=== PATIENT | male | born 1965 | race Caucasian/White ===

== ENCOUNTER 2016-12-05 13:59 | Inpatient (IN) | payer MEDICAID ==
[~2016-12-05] VITALS: Ht 180.3 cm; Wt 109.0 kg
--- NOTE | ~2016-12-05 | ECHO ---
Transthoracic Echocardiography Report (TTE) Demographics Patient Name PAULINE STRANGE Date of Study 12/06/2016 Patient Number [id number] Visit Number [id number] Date of 1965 Room Number G3306 Accession Number [id number] Gender Male Age 51 year(s) Referring [facility] Monica Chase [employer] Kassandra Bojorquez [facility] Physician Physician Interpreting Anabel Saini Director Of Premium Seat Sales Physician Supervising Ordering Physician MD/MARYAN Nurse Stress Slot Host Conclusions Summary Technically difficult exam with suboptimal images. The estimated left ventricular ejection fraction is 55%. Diastolic assessment reveals Grade I diastolic dysfunction. Mitral valve appears within normal limits. Other Valves were poorly visualized Procedure Type of Study TTE procedure:2D Echocardiogram. Procedure Date Date: 12/06/2016 Start: 12:01 PM Indications:Tachycardia. Appropriate Use Criteria: 9 Patient Status: LEILA HR: 91 bpm BP: 150/78 mmHg M-Mode/2D Measurements LV Diastolic Dimension: 4.47 cm LV Systolic Dimension: 3.57 cm LV Septum Diastolic: 1 cm LV PW Diastolic: 1 cm AO Root Dimension: 1.8 cm Cardiac Output: 6.09 l/min AV Cusp Separation: 1.9 cm RV Diastolic Dimension: 2.6 cm LVOT: 2 cm LVOT VTI: 21.3 cm LV Stroke volume: 66.88 ml Doppler Measurements AV Peak Velocity: 1.22 m/s MV Peak E-Wave: 0.8 m/s AV Peak Gradient: 5.95 mmHg MV Peak A-Wave: 0.74 m/s AV Mean Gradient: 3 mmHg MV E/A Ratio: 1.07 LVOT Peak Velocity: 1 m/s MV P1/2t: 42 msec TR Gradient:17.64 mmHg PV Peak Velocity: 1.6 m/s Estimated RAP:10 mmHg PV Peak Gradient: 10.24 mmHg Estimated RVSP: 28 mmHg Estimated PASP: 27.64 mmHg E' Septal Velocity: 0.1 m/s A' Septal Velocity: 0.17 m/s Findings Left Ventricle Diastolic assessment reveals Grade I diastolic dysfunction. Right Ventricle Normal right ventricle structure and function. Left Atrium Normal left atrial size. Right Atrium Normal right atrial size. Mitral Valve Normal mitral valve structure and function. Aortic Valve Not well visualized Tricuspid Valve Not well visualized Pulmonic Valve Pulmonic valve is not well seen. Pericardial Effusion No evidence of pericardial effusion. Pleural Effusion No evidence of pleural effusion. Signature dtt: JENNY LOTT dtd: 12/06/16 1201 Physician Self Edit
--- NOTE | ~2016-12-05 | CON ---
PATIENT'S NAME: PAULINE STRANGE [facility] AGE: 51 Y [address] ROOM: G3306 [place], [place] [address] LOCATION: G3N ADMIT DATE: 12/05/2016 Consultation DISCHARGE DATE: FAMILY PHYSICIAN: PHYSICIAN, NO ATTENDING PHYSICIAN: Nura Gaming DATE OF CONSULTATION: 12/05/2016 REFERRING PHYSICIAN: Nura Gaming MD This is a consultation for Dr. Nura Gaming. REASON FOR CONSULTATION: For preoperative clearance and medical management. CHIEF COMPLAINT: Left hip pain. HISTORY OF PRESENT ILLNESS: This is a 51-year-old male who presented to the emergency room after a fall at home. He has a history of cerebral palsy, but does live independently and does mobilize well at home. He was up using his walker and had ambulated to the kitchen, where he got his walker caught up and suffered a mechanical ground level fall. He did not hit his head. He did not get lightheaded or dizzy. He had no syncope-like symptoms. He landed on his left hip and left knee. He does complain now of left hip pain and some dull left knee pain. No sensory changes. He rates the pain at 6/10. He states that the morphine, I gave him in the emergency room, has helped. The patient does have a known history of cerebral palsy, but does not have a primary care physician. He states he last saw a physician years ago when he was obtaining disability. He does live independently, mobilizes well. He does state he has had some weight gain in the recent months, but he feels that is due to lack of activity. He has been trying to lose some weight, but has been unsuccessful. He denies any lightheadedness or dizziness. He denies any headaches. He denies any chest pain, palpitations, lower extremity edema, or dyspnea on exertion. He denies any PND. He denies any shortness of breath or cough. He denies any nausea, vomiting, diarrhea, constipation, or melena. He denies any urinary symptoms or problems. He does complain of left hip pain and left knee pain as described above. He denies any sensory changes. His gait is relatively stable with a wheeled walker at home. REVIEW OF SYSTEMS: A 10-point review of systems was completed and was negative other than mentioned above in the HPI. PATIENT'S NAME: PAULINE STRANGE [facility] AGE: 51 Y [address] ROOM: G3306 [place], [place] [address] LOCATION: [facility] ADMIT DATE: 12/05/2016 Consultation DISCHARGE DATE: FAMILY PHYSICIAN: PHYSICIAN, NO ATTENDING PHYSICIAN: Nura Gaming ALLERGIES: NO KNOWN MEDICAL ALLERGIES. MEDICATIONS: No chronic medications. PAST MEDICAL HISTORY: Cerebral palsy. PAST SURGICAL HISTORY: 1. He has had a limb lengthening surgery of the left hip. 2. Left heel surgery. 3. Lower back surgery. FAMILY HISTORY: His mother had heart valve surgery, diabetes mellitus type 2, and multiple small strokes, and she is . His father of colon cancer. SOCIAL HISTORY: The patient is disabled, living at home by himself. He does not smoke. He does not do illicit drugs. He calls himself a social drinker, last alcoholic drink was about a month ago. PHYSICAL EXAMINATION: VITAL SIGNS: Temperature is 97.6 oral, blood pressure is 131/60, heart rate is 130, respiratory rate is 22, and oxygen saturations are 95% on room air. Weight is unavailable, BMI is unavailable. GENERAL: This is a 51-year-old male, who is a white , appears in mild acute distress. He is diaphoretic. He is guarding his left pelvis and hip area. HEENT: His head is normocephalic and atraumatic. His eyes, extraocular movements are intact. His oropharynx is dry. His gums are pink. Dentition is poor. NECK: Supple without any lymphadenopathy or thyromegaly. LUNGS: Clear throughout all chowdhury. There is no wheeze. Symmetric expansion noted. HEART: Regular rate and rhythm without any gallop or murmur. S1 and S2 are present. No JVD. No pedal edema. 2+ pulses bilaterally in all 4 extremities. ABDOMEN: Round and soft, nontender, nondistended. Bowel sounds are present. : Deferred. EXTREMITIES: Left lower extremity is propped up on a pillow, slightly bent. Mildly externally rotated. Symmetric in size when compared to the right lower extremity. He has point tenderness at his pelvis on the left side and mild tenderness to the left knee on palpation. Motor function is intact. PATIENT'S NAME: PAULINE STRANGE [facility] AGE: 51 Y [address] ROOM: G3306 [place], [place] [address] LOCATION: [facility] ADMIT DATE: 12/05/2016 Consultation DISCHARGE DATE: FAMILY PHYSICIAN: PHYSICIAN, NO ATTENDING PHYSICIAN: Nura Gaming NEUROLOGIC: Cranial nerves 2 through 12 are intact. No sensory deficits noted. PSYCHIATRIC: Mood and affect appear normal. RADIOLOGIC: A chest x-ray is within normal limits and appears to be clear. A hip x-ray appears to have a left femur fracture. CT scan of the pelvis is pending. LABORATORY DATA: CBC shows white blood cell count of 15.4, hemoglobin of 16.2, hematocrit of 45.6, and platelet count of 372. Chemistry panel shows a glucose 158, BUN of 14, creatinine of 1.0, sodium 142, potassium of 3.9, chloride of 108, CO2 of 23, calcium of 8.7, albumin of 3.9, phosphorus 2.6, anion gap 14.9, and GFR of greater than 60. INR was 1.0. Prealbumin was 35. Urinalysis is yet to be received. ASSESSMENT AND PLAN: 1. Preoperative clearance for a left femoral neck fracture: He is in a sinus tachycardia with some diaphoresis. Recommendations were made for cardiac enzymes and TSH level. Pending further review, we will give ultimate clearance, but appears to be at average risk for average procedure. Risks, benefits, and alternatives to be discussed by orthopedic surgeon and Anesthesiology. 2. Left hip pain: We will give symptomatic management with IV morphine and observe the patient's response. 3. Sinus tachycardia: EKG was reviewed; did not show any acute changes; did show sinus tachycardia with a rate of 120, probably a stress response. We will observe his response to treatment of the pain. We will do routine vital signs and observation. We will check cardiac enzymes and TSH level. 4. Leukocytosis: This is probably reactive. He does not have any fevers. No known recent illnesses. Followup lab in the morning. 5. Cerebral palsy: He will need a restorative plan in the postoperative phase. 6. Obesity: Lifestyle modification education was given. The above line of management and plan done in collaboration with Dr. Akira Damon. The patient is at average risk for average procedure. Ultimate preoperative clearance pending results of laboratory findings. The above line of management was discussed with the patient and stated complete understanding of the plan. I would like to thank Dr. Nura Gaming for this consultation. PATIENT'S NAME: PAULINE STRANGE [facility] AGE: 51 Y [address] ROOM: [place] [address] LOCATION: [facility] ADMIT DATE: 12/05/2016 Consultation DISCHARGE DATE: FAMILY PHYSICIAN: PHYSICIANENRIKE ATTENDING PHYSICIAN: Nura Gaming P CHELE DOTSON APRN, APRN FOR MD RAJWINDER RICKS/lucia /[id number] d: t: 12/05/16 2300, CONSULTATION REPORT
--- NOTE | ~2016-12-05 | HP ---
PATIENT'S NAME: ALIE [facility] AGE: 51 Y [address] ROOM: [place] [address] LOCATION: [facility] ADMIT DATE: 12/05/2016 History & Physical DISCHARGE DATE: FAMILY PHYSICIAN: PHYSICIAN, NO ATTENDING PHYSICIAN: Megha Gaming DATE OF SERVICE: 12/05/2016 TIME: 5:00 p.m. HISTORY OF PRESENT ILLNESS: Mr. Vazquez is a 51-year-old healthy white male with cerebral palsy. He fell at home. He sustained a left hip displaced femoral neck fracture and also greater trochanter fracture. He lives independently but has been having increasing hip pain over the years and had reached a point that could no longer bear weight on the left hip. Intellectually, he has functioned at a very high level. He has worked as a computer numerical control programmer most recently, but currently, he is unemployed, would like to find a new employment, has no other medical conditions. ALLERGIES: NONE KNOWN. MEDICINES: None. PAST MEDICAL HISTORY: Cerebral palsy. He was born 3 months premature. He never received any treatment for his left hip. He has no pain in the right hip. He was walking independently prior to the left hip becoming increasingly painful. He does not smoke. Does not chew. Rarely drinks any alcohol. No drug abuse. REVIEW OF SYSTEMS: As above. FAMILY MEDICAL HISTORY: Unremarkable. PERSONAL AND SOCIAL HISTORY: He lives by himself. PHYSICAL EXAMINATION: GENERAL: A white male, mild distress. HEENT: Hears and sees. PATIENT'S NAME: ALIE [facility] AGE: 51 Y [address] ROOM: [address] [address] LOCATION: [facility] ADMIT DATE: 12/05/2016 History & Physical DISCHARGE DATE: FAMILY PHYSICIAN: PHYSICIAN, NO ATTENDING PHYSICIAN: Megha Gaming NECK: Nontender. HEART: Pulse rate is regular. LUNGS: Able to take in a deep breath. ABDOMEN: Soft. MUSCULOSKELETAL: Left hip, painful motion. Holding his hip and knee both flexed. Has good strength in his left leg. Feels sensation. Distal pulses palpable. IMAGING DATA: X-rays show a normal right hip without arthritic changes. The left hip, a typical cerebral palsy hip, which has been untreated, tight adductors, subluxed with severe degenerative changes. Now with displaced femoral neck fracture above the lesser trochanter and also fracture into the greater trochanter. ASSESSMENT AND PLAN: Discussed the treatment options. Certainly, if he was severely mentally involved and nonfunctional, resection of the proximal femur would be the best treatment. This would e guaranteed and never bear weight on it, likely develop significant heterotopic ossification and may even erode through the skin with spasticity. He is not interested in that option. 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 However, now with the additional instability of fracturing and with the osteopenia, it is difficult to achieve a fusion. With his high level of intellect, total hip replacement is an option. We discussed risks, benefits, and alternatives. He understands the high rate of dislocation, high rate of loosening, possibility of infection, would most likely require tenotomies, would also place in a hip spica cast initially to help keep the hip contained, but with a good result, this would be the best treatment. If the total hip failed, then resection would be the salvage procedure. He understands the risks, benefits, and alternatives, and would like to proceed with a total hip replacement. We will do with robotic guidance. MEGHA GAMING MD DPM/lucia /[id number] D: T: HISTORY & PHYSICAL
--- NOTE | ~2016-12-05 | DS ---
PATIENT'S NAME: PAULINE VAZQUEZ [facility] AGE: 51 Y [address] 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 He was admitted with a hip fracture, displaced femoral neck fracture, and also a fracture to the greater trochanter. He has a dysplastic hip typical of cerebral palsy with very marked tightness of the adductors. We discussed with him treatment options, certainly fusion would be an option, but would be difficult to achieve with a comminuted fracture and most likely some degree of osteoporosis. Could do a resection of the hip, but it is guaranteed that he would never walk on it. Discussed the option of a total hip. He has the insight of benefits from a total hip and his other hip is normal. He understands risks, benefits, and alternatives. Certainly if this hip would fail, the treatment would be the same with resection of the hip. He was medically optimized. Complex hip replacement was performed with the Higinio robot. An open adductor release was performed, also a psoas lengthening. The sciatic nerve was decompressed and the hip center was restored at an anatomic position. Procedure was done without complication. Postop leg length was equal. He was placed in a bilateral hip spica cast with the knees in only a few degrees of flexion. The days postop, the white blood count became elevated. He did not feel well. The hip spica cast was removed to inspect the wound. The wound was soft, no fluctuance, no erythema, no drainage of any type, no signs of any infection. The adductor wound was also completely intact. CT scan of the chest demonstrated a pulmonary emboli, he was anticoagulated. He was placed in a removable splint. The wound was carefully observed. He remained intact with no signs of infection. Blood cultures were unremarkable. He was ready for discharge to [facility] in [place]. He can stand and walk with physical therapy. Otherwise, he is having hip abduction brace in place. DISCHARGE MEDICINES: Include: 1. Tylenol. 2. Lioresal. 3. Dulcolax. 4. Colace. 5. Iron sulfate. 6. Neurontin. 7. Lopressor. 8. MiraLAX. 9. Xarelto. 10. Florastor. PATIENT'S NAME: PAULINE VAZQUEZ [facility] AGE: 51 Y [address] ROOM: [place] [address] LOCATION: [facility] ADMIT DATE: 12/05/2016 Discharge Summary DISCHARGE DATE: 12/25/2016 FAMILY PHYSICIAN: PHYSICIAN, NO ATTENDING PHYSICIAN: Nura Sarah 11. Valium. 12. Dilaudid. 13. Milk of magnesia. 14. B and O suppositories. He will follow up with his family physician, Dr. Bae for management his pulmonary emboli and anticoagulation. He will follow up with Dr. Sarah for his orthopedic care on January 06, 2017, at 1 p.m. NURA SARAH MD DPM/lucia /[id number] d: 12/29/16 2252 t: 01/07/17 1805, DISCHARGE SUMMARY
--- NOTE | ~2016-12-05 | OR ---
PATIENT'S NAME: ALIE [facility] AGE: 51 Y [address] ROOM: [place] [address] LOCATION: [facility] ADMIT DATE: 12/05/2016 OR/Procedure Report DISCHARGE DATE: FAMILY PHYSICIAN: PHYSICIAN, NO ATTENDING PHYSICIAN: Nura Gaming SURGEON: Nura Gaming MD DIRECTOR BEHAVIORAL HEALTH: DATE OF PROCEDURE: 12/09/2016 DIAGNOSES: 1. Comminuted left hip femoral neck fracture. 2. Comminuted greater trochanter fracture. 3. Cerebral palsy with a pseudoacetabulum and a severely degenerated remnant of the femoral articular surface. 4. Tight adductors. 5. Tight flexors. 6. High intelligence. 7. Normal right hip. 8. Moderate spasm. PROCEDURE: 1. Open adductor tenotomies. 2. Iliopsoas relaxation. 3. Total hip replacement with anglican of the hip center. 4. Open reduction and internal fixation of the greater trochanter. 5. Decompression of the sciatic nerve. 6. Application of limited hip spica cast bilaterally. ANESTHESIA: General. INDICATION: Mr. Strange, very bright productive individual. He has lived independently, has been having increasing hip pain over the most of the recent years and he has had to use a cane. He is a spastic hemiplegic. His right side is normal. He fell and sustained a displaced femoral neck fracture and also comminuted greater trochanter fracture. I discussed the options with him. Certainly if he was a low-functioning cerebral palsy patient, simply resection and never bear weight; however, the goal with him would be to return to ambulation. It would be difficult to achieve an arthrodesis with comminuted fractures. We also discussed risks, benefits, and alternatives of doing a hip arthroplasty. He wishes to proceed with hip arthroplasty. DESCRIPTION OF PROCEDURE: Mr. Strange was taken to the operating room. 2 g Kefzol was given intravenously for prophylaxis. Tranexamic acid was given for hemostasis. Initially in a supine position, an open adductor release was performed. Both the longus and the brevis nerves were protected. This [facility] 51 Y [address] ROOM: [place] [address] LOCATION: N ADMIT DATE: 12/05/2016 OR/Procedure Report DISCHARGE DATE: FAMILY PHYSICIAN: PHYSICIAN, NO ATTENDING PHYSICIAN: Nura Gaming allowed the hip to be abducted with a good 40 degrees; before, there was 0 abduction. The patient was then turned on the pegboard to a right lateral decubitus position. All pressure points were carefully checked and padded. The left flank, hip, and lower extremity were prepared with DuraPrep and draped sterilely. Through a 20-cm curvilinear incision from behind the posterior-superior corner of the greater trochanter, superiorly towards the anterior-superior iliac spine, and distally in line with the femoral shaft, dissection through previous scar tissue where he had had multiple previous operations with osteotomies and dissection to the iliotibial band. The iliotibial band was released beginning at the posterior-superior corner of the greater trochanter, going anterior to the gluteus zehra insertion and then distally. Proximally, the gluteus zehra was released from the tensor. The comminuted fracture of the greater trochanter allows, and already performed osteotomy, to mobilize the minimus and medius. Dissection under the rectus and the iliopsoas on the anterior capsule posteriorly going back to the sciatic notch could trace out the piriformis and the obturators, all very abnormal anatomy and pseudoarticulation. The head remnant was disarticulated from the pseudoacetabulum and removed, it was saved for pictures. The pubic bone in the ischium and the sciatic notch were all identified and gave good landmarks where the true acetabulum should be. Then using the emids robot, registration was performed based on the pseudoacetabulum. It was reamed to a 54 restoring the normal hip center. Incredible how accurate the robot was perfectly with the medial wall and perfectly lined up with the pubic bone and the ischium sized to a 54. 54 Millry acetabulum was placed. Six screws were placed, 4 into the ilium, 1 in the pubic bone, and 1 in the ischium. Then, the femur fracture was just above the lesser trochanter. The canal was entered, it was broached to a size 6 and cemented. The canal was irrigated. A cement restrictor was placed. Millry size 6 cemented stem with approximately 20 degrees of anteversion, opted with a high spasticity, to use a dual mobility cup with a 28 mm head standard length. This was nice balance. The iliopsoas had been slightly released for mobilization to release the flexion contracture. The cup was extremely stable. Dall-Miles was stable with 2 cables and then a vertical cable through the lateral wall of the femur and the trochanter were all placed in tension. Excellent repair of the greater trochanter bringing the minimus and medius back into place. Fascia of the gluteus zehra was repaired with #2 Ethibond. No need for a Hemovac. Subcutaneous tissue was closed with multiple layers of 0 Vicryl followed by 2- 0 Vicryl, followed by erlinda. The patient was then placed into long leg cast with a broomstick between allowing approximately 45 degrees of abduction of both hip with approximately 15 degrees of flexion of both knees. These were extremely well padded with additional felt over the knees, especially over the incision about the tops of both calves and also about both ankles. No skin irritation from the cast. Procedure was done without complication. Estimated blood loss from the procedure was 1100 mL. To the recovery room in stable condition. In the recovery room, good strength in both lower extremities, he PATIENT'S NAME: PAULINE STRANGE [facility] AGE: 51 Y [address] ROOM: [address] [address] LOCATION: [facility] ADMIT DATE: 12/05/2016 OR/Procedure Report DISCHARGE DATE: FAMILY PHYSICIAN: PHYSICIAN, NO ATTENDING PHYSICIAN: Nura Gaming was comfortable, and x-rays showed that the hip had been placed in perfect anatomic position. NURA GAMING MD DPM/lucia /[id number] d: 12/10/162105 t: 12/18/16 1211, OPERATIVE SUMMARY
--- NOTE | ~2016-12-05 | ENPV ---
Vascular Lower Extremities DVT Study Procedure Demographics Patient Name PAULINE STRANGE Date of Study 12/17/2016 Patient Number [id number] Gender Male Date of 1965 Age 51 Visit Number [id number] Height 71 Accession Number [id number] Weight 256.01 Referring Sonali Gann MD Interpreting Silas Muñoz MD Physician Mekhi Chang MD Physician Physician Ordering Physician Sonali Abernathy MD Construction Rigger Joon Borja [facility] Conclusions Summary Limited bilateral lower extremity venous study due to external braces. No evidence of deep vein thrombosis or superficial thrombophlebitis in the visualized lower extremity veins bilaterally. Procedure Type of Study: Veins:Lower Extremities DVT Study, Venous Duplex Lower Extremity Bilateral. Indications for Study:Trauma. Patient Status:Routine. Study Location:Inpatient Portable. Technical Quality:Adequate visualization. Velocities are measured in cm/s ; Diameters are measured in cm Right Lower Extremities DVT Study Measurements Right 2D and Doppler Measurements + + + + +------+------+ + !Location !Visualized!Compressibility!Thrombosis!Signal!Reflux!Reflux ! ! ! ! ! ! ! !(sec) ! + + + + +------+------+ + !GSV Thigh !Yes !Yes !None !Phasic! ! ! + + + + +------+------+ + !Common !Yes !Yes !None !Phasic! ! ! !Femoral ! ! ! ! ! ! ! + + + + +------+------+ + !Prox !Yes !Yes !None !Phasic! ! ! !Femoral ! ! ! ! ! ! ! + + + + +------+------+ + !Mid Femoral!No ! ! ! ! ! ! + + + + +------+------+ + !Dist !No ! ! ! ! ! ! !Femoral ! ! ! ! ! ! ! + + + + +------+------+ + !Popliteal !Yes !Yes !None !Phasic! ! ! + + + + +------+------+ + !PTV !Yes !Yes !None !Phasic! ! ! + + + + +------+------+ + !Peroneal !Yes !Yes !None !Phasic! ! ! + + + + +------+------+ + Left Lower Extremities DVT Study Measurements Left 2D and Doppler Measurements + + + + +------+------+ + !Location !Visualized!Compressibility!Thrombosis!Signal!Reflux!Reflux ! ! ! ! ! ! ! !(sec) ! + + + + +------+------+ + !GSV Thigh !Yes !Yes !None !Phasic! ! ! + + + + +------+------+ + !Common !Yes !Yes !None !Phasic! ! ! !Femoral ! ! ! ! ! ! ! + + + + +------+------+ + !Prox !Yes !Yes !None !Phasic! ! ! !Femoral ! ! ! ! ! ! ! + + + + +------+------+ + !Mid Femoral!No ! ! ! ! ! ! + + + + +------+------+ + !Dist !No ! ! ! ! ! ! !Femoral ! ! ! ! ! ! ! + + + + +------+------+ + !Popliteal !Yes !Yes !None !Phasic! ! ! + + + + +------+------+ + !PTV !Yes !Yes !None !Phasic! ! ! + + + + +------+------+ + !Peroneal !Yes !Yes !None !Phasic! ! ! + + + + +------+------+ + Signature dtt: ARMANDO RICO dtchetna: 12/17/16 1410 Physician Self Edit
--- NOTE | ~2016-12-05 | CON ---
PATIENT'S NAME: ALIE [facility] AGE: 51 Y [address] ROOM: [place] [address] LOCATION: G3N ADMIT DATE: 12/05/2016 Consultation DISCHARGE DATE: FAMILY PHYSICIAN: PHYSICIAN, NO ATTENDING PHYSICIAN: Nura Gaming DATE OF CONSULTATION: 12/12/2016 REFERRING PHYSICIAN: Everett Salinas PA-C REASON FOR VISIT/CONSULTATION: Wound Care visit to evaluate and assess the patient for pressure ulcer prevention measures. HISTORY OF PRESENT ILLNESS: This is a 51-year-old male patient who was admitted to [facility] with a left hip fracture. He has a significant history of cerebral palsy. He lives independently at home and fell while using his walker. On 12/10/2015, he had an ORIF of the left greater trochanter as well as a left total hip replacement with application of a limited hip spica cast. No pressure ulcers documented on admission. The patient was noted to have a left flank skin tear from Medipore tape removal. The patient is currently on a sizewise bariatric bed. He has an extra-large recliner in his room. He is denying pain at rest. He rates his pain a 6 to an 8/10 with movement. He is reluctant and hesitant at times to turn even with help. He reports a good oral intake. He denies fevers, chills, or sweats. He denies chest pain or shortness of breath. He denies nausea, vomiting, or diarrhea. He is a nondiabetic. PAST MEDICAL HISTORY: 1. Cerebral palsy. 2. Weakness. PAST SURGICAL HISTORY: Left femoral surgery and ORIF of the left greater trochanter, and a left total hip replacement by Dr. Gaming. FAMILY HISTORY: Mother had brain cancer and of an MRSA infection. His father suffered from intestinal cancer. SOCIAL HISTORY: The patient lives independently in [place], [place]. He is currently disabled. He denies tobacco or alcohol use. PATIENT'S NAME: ALIE [facility] AGE: 51 Y [address] ROOM: [place] [address] LOCATION: [facility] ADMIT DATE: 12/05/2016 Consultation DISCHARGE DATE: FAMILY PHYSICIAN: PHYSICIAN, NO ATTENDING PHYSICIAN: Nura Gaming ALLERGIES: NO KNOWN MEDICATION ALLERGIES. CURRENT MEDICATIONS: Please refer to the medication administration record. REVIEW OF SYSTEMS: A 10-point review of systems was completed and all are negative except as mentioned above in the HPI. PHYSICAL EXAMINATION: VITAL SIGNS: Temperature 98.1, pulse 105, respirations 16, blood pressure 138/69, and pulse oximetry 93% on 2 L. Height 5 feet 11 inches and weight 116.4 kg. GENERAL APPEARANCE: The patient is alert and oriented x3. In no acute distress. HEENT: Head; normocephalic and atraumatic. Oral mucosa intact. Poor dentition. NECK: Supple. LUNGS: Unlabored. EXTREMITIES. +2 pedal pulses. MUSCULOSKELETAL: Intact bilateral hip spica cast. SKIN: The patient's elbows are intact. Callus buildup noted to bilateral palms. The patient reports this is from pushing his wheelchair. Buttocks intact. Groin folds intact. Left flank area has a small skin tear from tape stripping that measures 2.5 cm width x 1.5 cm length x 0.1 cm depth. Wound bed is moist pink. Scant serous exudate noted. Periwound intact. Heels intact. No pressure ulcers noted. Capillary refill intact. Extremities are warm to touch. LABORATORY DATA: White blood cell count 16.0, hemoglobin 8.3, hematocrit 25.1, and platelets 395,000. Sodium 142, potassium 4.0, chloride 105, bicarbonate 29, BUN 14, creatinine 0.7, and glucose 112. ASSESSMENT AND PLAN: Again, this is a 51-year-old, male patient who was admitted to [facility] with a left hip fracture. He is status post a left open reduction and internal fixation of the greater trochanter and left total hip replacement with application of a limited hip spica cast. Wound Care was consulted to evaluate the patient for pressure ulcer prevention measures. 1. Left flank skin tear from Medipore tape. No signs of infection noted. We will keep the area moist with Aloe [place]. Nursing is to apply b.i.d. to site. PATIENT'S NAME: PAULINE STRANGE [facility] AGE: 51 Y [address] ROOM: [place] [address] LOCATION: [facility] ADMIT DATE: 12/05/2016 Consultation DISCHARGE DATE: FAMILY PHYSICIAN: PHYSICIAN, ENRIKE ATTENDING PHYSICIAN: Nura Gaming 2. Pressure ulcer prevention. I spent time with the patient discussing pressure redistribution measures. He is hesitant to turn. I instructed his primary care RN as well as the transport team that patient must be offered to turn in bed every 2 hours. Even tilting would be helpful. The patient is currently on a sizewise bariatric mattress now. I did talk with Shalonda from transport and we will order patient a Hill-Rom bariatric air mattress from [employer]. It will arrive today. Transport is to assist turning the patient q.2 hours during the day, however, it is ultimately the primary RN's responsibility. Nursing is to keep heels afloat at all times to prevent heel pressure ulcer formation. Nursing is also to check the skin around his spica cast q. shift. Okay to use cast padding as needed. 3. Left hip fracture status post repair. Orthopedics following. I would like to thank Everett Salinas PA-C for this consultation. AYLEEN ARTHUR APRN FOR MD SONIYA MELARA/lucia /[id number] d: 12/13/16 1402 t: 12/30/16 1516, CONSULTATION REPORT
--- NOTE | ~2016-12-05 | ER ---
PATIENT'S NAME: [facility] AGE: 51 Y [address] ROOM: [address] [address] LOCATION: [facility] ADMIT DATE: 12/05/2016 ER/Outpatient Report DISCHARGE DATE: FAMILY PHYSICIAN: PHYSICIAN, NO ATTENDING PHYSICIAN: Nura Gaming Time of Arrival: 1359 hours. Time of Evaluation/Exam: 1359 hours. CHIEF COMPLAINT: Injuries from a fall. HISTORY OF PRESENT ILLNESS: The patient arrived per [facility] paramedics. He had been given fentanyl 50 mcg nasally on site. The patient states he had just gotten up from a nap, was using his walker, walking to his kitchen when his walker got tangled with a folding chair causing him to fall with the chair. States he fell on his left side and having quite a bit of discomfort in that left hip area. States he is not able to straighten out his leg due to pain. Denies any other injury with the fall. ALLERGIES: NO KNOWN ALLERGIES. MEDICATIONS: No current medications. PAST MEDICAL HISTORY: Cerebral palsy. PAST SURGICAL HISTORY: States he has had some surgery to the left femur before. SOCIAL HISTORY: He states he lives at home alone. Denies use of tobacco or drugs. Does drink alcohol moderately when he drinks. He states he has not drank for the last month. States he does not have a primary provider here in town. States the surgery that he had done on his leg was many years ago with Dr. Lopez. REVIEW OF SYSTEMS: All negative other than those mentioned in the HPI. PHYSICAL EXAMINATION: VITAL SIGNS: He weighed 118 kg. Blood pressure is 192/97, pulse of 121, respirations 20, and temperature of 98.9. [facility] 51 Y [address] ROOM: [address] [place], [place] [address] LOCATION: [facility] ADMIT DATE: 12/05/2016 ER/Outpatient Report DISCHARGE DATE: FAMILY PHYSICIAN: PHYSICIAN, NO ATTENDING PHYSICIAN: Nura Gaming GENERAL APPEARANCE: He is awake, alert, and oriented x4. He is able to answer questions appropriately. His Kelby Coma Scale is 15. RESPIRATORY: Lung sounds are clear throughout. HEART: Tachycardic, but regular. ABDOMEN: Soft and nondistended. Bowel sounds are present. EXTREMITIES: He does have pedal pulse on the left. He is very tender to move that left leg. EMERGENCY ROOM COURSE: Saline lock was initiated. The patient was given fentanyl 50 mcg IV. Laboratory work was drawn. X-ray of the left hip and pelvis was completed. CBC shows a white count of 15.4, hemoglobin of 16.2 with a hematocrit of 45.6. Renal panel is within normal limits. His glucose is 158. Proalbumin was 35. EKG shows sinus tachycardia. The patient was unable to give us a urine sample and refused to be catheterized at this time. Fentanyl did not help with the pain. We did give him morphine 2 mg IV and some Zofran 4 mg IV. The morphine was repeated. Dr. Nura Gaming was contacted regarding the patient. The patient is to be admitted with the Hospitalist as consult. Dr. Damon was contacted and report was given. IMPRESSION: Left femoral neck fracture. PLAN: The patient to be placed in the hospital for Dr. Gaming with Hospitalist as consult. The patient is aware of plan of care. CLINTON INGRAM APRN FOR MD DAVID MERRITT/lucia /[id number] d: 12/05/161 t: 01/02/17 0945, OUTPATIENT REPORT
[2016-12-05 14:15] LABS: BASOPHIL # 0.1 K/uL (0.0-0.2); BASOPHIL % 0.5 %; EOSINOPHIL # 0.2 K/uL (0.0-0.5); EOSINOPHIL % 1.1 %; HEMATOCRIT 45.6 % (37.0-53.0); HEMOGLOBIN 16.2 g/dL (12.0-17.0); IMMATURE GRANULOCYTE # 0.1 K/uL (0.0-0.3); IMMATURE GRANULOCYTE % 0.8 %; LYMPHOCYTE # 2.9 K/uL (0.8-4.0); LYMPHOCYTE % 18.7 %; MCH 30.9 pg (27.0-34.0); MCHC 35.5 gm/dL (32.0-36.5); MONOCYTE % 6.2 %; MPV 9.3 fl (9.4-12.4); NEUTROPHIL # (ANC) 11.2 K/uL (1.4-9.0); NEUTROPHIL % 72.7 %; NRBC % 0 /100WBC (0-0.00); PLATELET COUNT 372 K/uL (150-450); RBC 5.24 M/uL (4.00-6.00); RDW-CV 14.1 % (11.9-14.6); WBC 15.4 K/uL (4.0-11.0)
[2016-12-05 14:25] LABS: PROTIME 10.7 SECONDS (9.6-11.1); PTT 25 SECONDS (25-32)
[2016-12-05 14:31] LABS: ALBUMIN 3.9 gm/dL (3.5-5.0); ANION GAP 14.9 (10.0-19.0); BLOOD UREA NITROGEN 14 mg/dL (6-24); CALCIUM 8.7 mg/dL (8.5-10.5); CHLORIDE 108 mMol/L (96-110); CO2 23 mMol/L (22-32); ESTIMATED GFR (MDRD EQUATION) > 60; PHOSPHORUS 2.6 mg/dL (2.5-4.9); POTASSIUM 3.9 mMol/L (3.7-5.1); SODIUM 142 mMol/L (135-145)
[2016-12-05] MEDS ORDERED: TYLENOL EXTRA500 MG PO (16:23)
[2016-12-05 16:59] LABS: CPK 165 IU/L (35-332)
[2016-12-05 17:30] LABS: BILIRUBIN URINE NEGATIVE (NEGATIVE); BLOOD URINE 25 /UL (NEGATIVE); COLOR URINE YELLOW (YELLOW); GLUCOSE URINE NEGATIVE (NEGATIVE); KETONE URINE 5 mg/dL (NEGATIVE); LEUKOCYTES URINE NEGATIVE /UL (NEGATIVE); NITRITE URINE NEGATIVE (NEGATIVE); PROTEIN URINE 30 mg/dL (NEGATIVE); SPEC GRAVITY URINE 1.025 (1.003-1.035); TURBIDITY URINE CLEAR (CLEAR); UROBILINOGEN URINE NORMAL (NORMAL)
[2016-12-05 17:36] LABS: BACTERIA URINE NEGATIVE (NEGATIVE); EPITHELIAL URINE 0-2 #/HPF (NEGATIVE); RBC URINE NEGATIVE #/HPF (NEGATIVE); WBC URINE NEGATIVE #/HPF (NEGATIVE)
[2016-12-05 17:37] LABS: AMORPHOUS URINE 1+ (NEGATIVE); HYALINE CAST URINE RARE #/LPF (NEGATIVE)
[2016-12-05 23:23] LABS: CPK 440 IU/L (35-332)
[2016-12-06 05:30] LABS: BASOPHIL # 0.1 K/uL (0.0-0.2); BASOPHIL % 0.3 %; EOSINOPHIL % 0.1 %; HEMATOCRIT 42.1 % (37.0-53.0); HEMOGLOBIN 14.6 g/dL (12.0-17.0); IMMATURE GRANULOCYTE # 0.1 K/uL (0.0-0.3); IMMATURE GRANULOCYTE % 0.5 %; LYMPHOCYTE # 1.4 K/uL (0.8-4.0); LYMPHOCYTE % 7.4 %; MCH 30.8 pg (27.0-34.0); MCHC 34.7 gm/dL (32.0-36.5); MCV 88.8 fl (83.0-98.0); MONOCYTE # 1.6 K/uL (0.0-1.0); MONOCYTE % 8.6 %; MPV 9.3 fl (9.4-12.4); NEUTROPHIL # (ANC) 15.5 K/uL (1.4-9.0); NEUTROPHIL % 83.1 %; NRBC % 0 /100WBC (0-0.00); RBC 4.74 M/uL (4.00-6.00); RDW-CV 14.4 % (11.9-14.6)
[2016-12-06 05:31] LABS: PLATELET COUNT 250 K/uL (150-450); WBC 18.7 K/uL (4.0-11.0)
[2016-12-07 05:38] LABS: BASOPHIL # 0.1 K/uL (0.0-0.2); BASOPHIL % 0.4 %; EOSINOPHIL # 0.2 K/uL (0.0-0.5); HEMATOCRIT 38.9 % (37.0-53.0); HEMOGLOBIN 13.3 g/dL (12.0-17.0); IMMATURE GRANULOCYTE # 0.1 K/uL (0.0-0.3); IMMATURE GRANULOCYTE % 0.5 %; LYMPHOCYTE # 1.9 K/uL (0.8-4.0); LYMPHOCYTE % 12.4 %; MCH 30.4 pg (27.0-34.0); MCHC 34.2 gm/dL (32.0-36.5); MONOCYTE # 1.5 K/uL (0.0-1.0); MONOCYTE % 10.1 %; MPV 9.4 fl (9.4-12.4); NEUTROPHIL # (ANC) 11.4 K/uL (1.4-9.0); NEUTROPHIL % 75.6 %; NRBC % 0 /100WBC (0-0.00); PLATELET COUNT 209 K/uL (150-450); RBC 4.37 M/uL (4.00-6.00); RDW-CV 14.6 % (11.9-14.6); WBC 15.1 K/uL (4.0-11.0)
[2016-12-07 05:50] LABS: ANION GAP 10.9 (10.0-19.0); BLOOD UREA NITROGEN 14 mg/dL (6-24); CALCIUM 8.2 mg/dL (8.5-10.5); CHLORIDE 104 mMol/L (96-110); CO2 29 mMol/L (22-32); CREATININE 0.9 mg/dL (0.6-1.3); ESTIMATED GFR (MDRD EQUATION) > 60; MAGNESIUM 2.1 mg/dL (1.3-2.6); POTASSIUM 3.9 mMol/L (3.7-5.1); SODIUM 140 mMol/L (135-145)
[2016-12-08 06:05] LABS: BASOPHIL % 0.3 %; EOSINOPHIL # 0.2 K/uL (0.0-0.5); EOSINOPHIL % 1.5 %; HEMATOCRIT 36.5 % (37.0-53.0); IMMATURE GRANULOCYTE # 0.1 K/uL (0.0-0.3); IMMATURE GRANULOCYTE % 0.4 %; LYMPHOCYTE # 1.5 K/uL (0.8-4.0); LYMPHOCYTE % 11.5 %; MCH 31.1 pg (27.0-34.0); MCHC 35.6 gm/dL (32.0-36.5); MCV 87.3 fl (83.0-98.0); MONOCYTE # 1.1 K/uL (0.0-1.0); MONOCYTE % 8.3 %; MPV 9.3 fl (9.4-12.4); NEUTROPHIL # (ANC) 10.2 K/uL (1.4-9.0); NRBC % 0 /100WBC (0-0.00); PLATELET COUNT 220 K/uL (150-450); RBC 4.18 M/uL (4.00-6.00); RDW-CV 14.1 % (11.9-14.6)
[2016-12-08 06:19] LABS: ANION GAP 8.7 (10.0-19.0); BLOOD UREA NITROGEN 12 mg/dL (6-24); CALCIUM 8.2 mg/dL (8.5-10.5); CHLORIDE 102 mMol/L (96-110); CO2 31 mMol/L (22-32); CREATININE 0.8 mg/dL (0.6-1.3); ESTIMATED GFR (MDRD EQUATION) > 60; POTASSIUM 3.7 mMol/L (3.7-5.1); SODIUM 138 mMol/L (135-145)
[2016-12-09 05:40] LABS: BASOPHIL % 0.3 %; EOSINOPHIL # 0.2 K/uL (0.0-0.5); EOSINOPHIL % 1.4 %; HEMATOCRIT 36.1 % (37.0-53.0); HEMOGLOBIN 12.7 g/dL (12.0-17.0); IMMATURE GRANULOCYTE # 0.1 K/uL (0.0-0.3); IMMATURE GRANULOCYTE % 0.4 %; LYMPHOCYTE # 1.1 K/uL (0.8-4.0); MCH 30.7 pg (27.0-34.0); MCHC 35.2 gm/dL (32.0-36.5); MCV 87.2 fl (83.0-98.0); MONOCYTE # 1.1 K/uL (0.0-1.0); MONOCYTE % 8.8 %; MPV 9.5 fl (9.4-12.4); NEUTROPHIL % 80.1 %; NRBC % 0 /100WBC (0-0.00); PLATELET COUNT 240 K/uL (150-450); RBC 4.14 M/uL (4.00-6.00); RDW-CV 13.8 % (11.9-14.6); WBC 12.5 K/uL (4.0-11.0)
[2016-12-09 19:39] LABS: HEMOGLOBIN 12.4 g/dL (12.0-17.0)
[2016-12-09 21:36] LABS: HEMATOCRIT 30.4 % (37.0-53.0)
[2016-12-09 21:37] LABS: HEMOGLOBIN 10.6 g/dL (12.0-17.0)
[2016-12-10 06:13] LABS: HEMOGLOBIN 9.7 g/dL (12.0-17.0)
[2016-12-10 08:54] LABS: ANION GAP 15.1 (10.0-19.0); BLOOD UREA NITROGEN 14 mg/dL (6-24); CHLORIDE 106 mMol/L (96-110); CO2 24 mMol/L (22-32); CREATININE 0.9 mg/dL (0.6-1.3); ESTIMATED GFR (MDRD EQUATION) > 60; POTASSIUM 4.1 mMol/L (3.7-5.1); SODIUM 141 mMol/L (135-145)
[2016-12-10 09:03] LABS: CALCIUM 7.4 mg/dL (8.5-10.5)
[2016-12-11 05:26] LABS: BASOPHIL % 0.2 %; EOSINOPHIL # 0.2 K/uL (0.0-0.5); EOSINOPHIL % 1.4 %; IMMATURE GRANULOCYTE # 0.1 K/uL (0.0-0.3); IMMATURE GRANULOCYTE % 0.8 %; LYMPHOCYTE # 1.1 K/uL (0.8-4.0); LYMPHOCYTE % 8.2 %; MCV 89.7 fl (83.0-98.0); MONOCYTE # 1.2 K/uL (0.0-1.0); MONOCYTE % 9.3 %; MPV 9.7 fl (9.4-12.4); NEUTROPHIL # (ANC) 10.7 K/uL (1.4-9.0); NEUTROPHIL % 80.1 %; NRBC % 0 /100WBC (0-0.00); PLATELET COUNT 257 K/uL (150-450); RDW-CV 14.4 % (11.9-14.6); WBC 13.3 K/uL (4.0-11.0)
[2016-12-11 05:29] LABS: HEMATOCRIT 20.9 % (37.0-53.0); HEMOGLOBIN 7.2 g/dL (12.0-17.0); MCH 30.9 pg (27.0-34.0); MCHC 34.4 gm/dL (32.0-36.5); RBC 2.33 M/uL (4.00-6.00)
[2016-12-11 15:16] LABS: HEMATOCRIT 22.8 % (37.0-53.0)
[2016-12-11 15:20] LABS: HEMOGLOBIN 7.9 g/dL (12.0-17.0)
[2016-12-12 05:27] LABS: HEMATOCRIT 22.2 % (37.0-53.0)
[2016-12-12 05:31] LABS: HEMOGLOBIN 7.5 g/dL (12.0-17.0)
[2016-12-13 05:44] LABS: BASOPHIL # 0.1 K/uL (0.0-0.2); BASOPHIL % 0.4 %; EOSINOPHIL # 0.3 K/uL (0.0-0.5); EOSINOPHIL % 2.1 %; HEMATOCRIT 25.1 % (37.0-53.0); HEMOGLOBIN 8.3 g/dL (12.0-17.0); IMMATURE GRANULOCYTE # 0.6 K/uL (0.0-0.3); IMMATURE GRANULOCYTE % 3.5 %; LYMPHOCYTE # 1.9 K/uL (0.8-4.0); LYMPHOCYTE % 11.7 %; MCH 30.5 pg (27.0-34.0); MCHC 33.1 gm/dL (32.0-36.5); MCV 92.3 fl (83.0-98.0); MONOCYTE # 1.5 K/uL (0.0-1.0); MONOCYTE % 9.5 %; MPV 9.5 fl (9.4-12.4); NEUTROPHIL # (ANC) 11.6 K/uL (1.4-9.0); NEUTROPHIL % 72.8 %; NRBC % 0.3 /100WBC (0-0.00); RBC 2.72 M/uL (4.00-6.00); RDW-CV 15.2 % (11.9-14.6)
[2016-12-13 05:49] LABS: PLATELET COUNT 395 K/uL (150-450)
[2016-12-13 06:05] LABS: BLOOD UREA NITROGEN 14 mg/dL (6-24); CHLORIDE 105 mMol/L (96-110); CO2 29 mMol/L (22-32); CREATININE 0.7 mg/dL (0.6-1.3); ESTIMATED GFR (MDRD EQUATION) > 60; SODIUM 142 mMol/L (135-145)
[2016-12-14 06:01] LABS: HEMATOCRIT 26.5 % (37.0-53.0); HEMOGLOBIN 8.8 g/dL (12.0-17.0); MCH 30.6 pg (27.0-34.0); MCHC 33.2 gm/dL (32.0-36.5); MPV 9.4 fl (9.4-12.4); RBC 2.88 M/uL (4.00-6.00); RDW-CV 15.5 % (11.9-14.6)
[2016-12-14 06:02] LABS: PLATELET COUNT 502 K/uL (150-450)
[2016-12-14 06:22] LABS: BLOOD UREA NITROGEN 15 mg/dL (6-24); CALCIUM 8.4 mg/dL (8.5-10.5); CHLORIDE 105 mMol/L (96-110); CO2 27 mMol/L (22-32); CREATININE 0.8 mg/dL (0.6-1.3); ESTIMATED GFR (MDRD EQUATION) > 60
[2016-12-14 06:27] LABS: ANION GAP 14.6 (10.0-19.0); MAGNESIUM 2.6 mg/dL (1.3-2.6); POTASSIUM 4.6 mMol/L (3.7-5.1); SODIUM 142 mMol/L (135-145)
[2016-12-14 06:56] LABS: ABSOLUTE NEUTROPHIL CT (ANC) 13.5 K/uL (1.4-9.0); BANDED NEUTROPHIL # 0.8 K/uL (0.0-0.1); BANDED NEUTROPHILS % 4 %; LYMPHOCYTE # 4.4 K/uL (0.8-4.0); LYMPHOCYTE % 23 %; SEGMENTED NEUTROPHIL # 12.7 K/uL (1.4-9.0); SEGMENTED NEUTROPHIL % 67 %
[2016-12-14 15:05] LABS: BILIRUBIN URINE NEGATIVE (NEGATIVE); BLOOD URINE NEGATIVE /UL (NEGATIVE); COLOR URINE COLORLESS (YELLOW); GLUCOSE URINE NEGATIVE (NEGATIVE); KETONE URINE NEGATIVE (NEGATIVE); LEUKOCYTES URINE NEGATIVE /UL (NEGATIVE); NITRITE URINE NEGATIVE (NEGATIVE); PROTEIN URINE NEGATIVE (NEGATIVE); TURBIDITY URINE CLEAR (CLEAR); UROBILINOGEN URINE NORMAL (NORMAL)
[2016-12-15 06:23] LABS: HEMATOCRIT 28.8 % (37.0-53.0); HEMOGLOBIN 9.5 g/dL (12.0-17.0); MCH 30.5 pg (27.0-34.0); MCV 92.6 fl (83.0-98.0); MPV 9.7 fl (9.4-12.4); RBC 3.11 M/uL (4.00-6.00); RDW-CV 16.1 % (11.9-14.6)
[2016-12-15 06:24] LABS: PLATELET COUNT 649 K/uL (150-450); WBC 21.6 K/uL (4.0-11.0)
[2016-12-15 06:33] LABS: ANION GAP 14.1 (10.0-19.0); BLOOD UREA NITROGEN 19 mg/dL (6-24); CALCIUM 8.6 mg/dL (8.5-10.5); CHLORIDE 103 mMol/L (96-110); CO2 28 mMol/L (22-32); CREATININE 0.7 mg/dL (0.6-1.3); ESTIMATED GFR (MDRD EQUATION) > 60; POTASSIUM 4.1 mMol/L (3.7-5.1); SODIUM 141 mMol/L (135-145)
[2016-12-15 06:46] LABS: ABSOLUTE NEUTROPHIL CT (ANC) 15.3 K/uL (1.4-9.0); BANDED NEUTROPHIL # 0.6 K/uL (0.0-0.1); BANDED NEUTROPHILS % 3 %; LYMPHOCYTE # 3.7 K/uL (0.8-4.0); LYMPHOCYTE % 17 %; MONOCYTE # 2.2 K/uL (0.0-1.0); SEGMENTED NEUTROPHIL # 14.7 K/uL (1.4-9.0); SEGMENTED NEUTROPHIL % 68 %
[2016-12-16 04:09] LABS: HEMATOCRIT 32.7 % (37.0-53.0); HEMOGLOBIN 10.5 g/dL (12.0-17.0); MCH 29.9 pg (27.0-34.0); MCHC 32.1 gm/dL (32.0-36.5); MCV 93.2 fl (83.0-98.0); MPV 9.6 fl (9.4-12.4); PLATELET COUNT 749 K/uL (150-450); RBC 3.51 M/uL (4.00-6.00); RDW-CV 17.4 % (11.9-14.6)
[2016-12-16 04:11] LABS: WBC 25.2 K/uL (4.0-11.0)
[2016-12-16 04:28] LABS: ANION GAP 14.3 (10.0-19.0); BLOOD UREA NITROGEN 23 mg/dL (6-24); CALCIUM 8.9 mg/dL (8.5-10.5); CHLORIDE 104 mMol/L (96-110); CO2 25 mMol/L (22-32); CREATININE 0.9 mg/dL (0.6-1.3); ESTIMATED GFR (MDRD EQUATION) > 60; POTASSIUM 4.3 mMol/L (3.7-5.1); SODIUM 139 mMol/L (135-145)
[2016-12-16 05:21] LABS: ABSOLUTE NEUTROPHIL CT (ANC) 19.2 K/uL (1.4-9.0); BANDED NEUTROPHIL # 0.8 K/uL (0.0-0.1); BANDED NEUTROPHILS % 3 %; LYMPHOCYTE % 16 %; MONOCYTE # 1.5 K/uL (0.0-1.0); SEGMENTED NEUTROPHIL # 18.4 K/uL (1.4-9.0); SEGMENTED NEUTROPHIL % 73 %
[2016-12-17 06:19] LABS: HEMATOCRIT 29.3 % (37.0-53.0); HEMOGLOBIN 9.6 g/dL (12.0-17.0); MCH 30.4 pg (27.0-34.0); MCHC 32.8 gm/dL (32.0-36.5); MCV 92.7 fl (83.0-98.0); MPV 9.5 fl (9.4-12.4); PLATELET COUNT 649 K/uL (150-450); RBC 3.16 M/uL (4.00-6.00); RDW-CV 17.4 % (11.9-14.6); WBC 25.8 K/uL (4.0-11.0)
[2016-12-17 07:17] LABS: ABSOLUTE NEUTROPHIL CT (ANC) 19.9 K/uL (1.4-9.0); BANDED NEUTROPHIL # 0.5 K/uL (0.0-0.1); BANDED NEUTROPHILS % 2 %; LYMPHOCYTE # 3.6 K/uL (0.8-4.0); LYMPHOCYTE % 14 %; MONOCYTE # 2.3 K/uL (0.0-1.0); SEGMENTED NEUTROPHIL # 19.4 K/uL (1.4-9.0); SEGMENTED NEUTROPHIL % 75 %
[2016-12-17 15:12] LABS: ESTIMATED GFR (MDRD EQUATION) > 60
[2016-12-17 20:01] LABS: HEMATOCRIT 32.4 % (37.0-53.0); HEMOGLOBIN 10.5 g/dL (12.0-17.0); MCH 30.4 pg (27.0-34.0); MCHC 32.4 gm/dL (32.0-36.5); MCV 93.9 fl (83.0-98.0); MPV 9.3 fl (9.4-12.4); PLATELET COUNT 708 K/uL (150-450); RBC 3.45 M/uL (4.00-6.00); RDW-CV 18.1 % (11.9-14.6)
[2016-12-17 20:12] LABS: PROTIME 10.7 SECONDS (9.6-11.1)
[2016-12-17 20:16] LABS: WBC 34.6 K/uL (4.0-11.0)
[2016-12-17 20:48] LABS: ABSOLUTE NEUTROPHIL CT (ANC) 28.7 K/uL (1.4-9.0); BANDED NEUTROPHIL # 0.3 K/uL (0.0-0.1); BANDED NEUTROPHILS % 1 %; LYMPHOCYTE # 4.5 K/uL (0.8-4.0); MONOCYTE # 0.7 K/uL (0.0-1.0); SEGMENTED NEUTROPHIL # 28.4 K/uL (1.4-9.0); SEGMENTED NEUTROPHIL % 82 %
[2016-12-17 20:52] LABS: LYMPHOCYTE % 13 %
[2016-12-18 03:25] LABS: HEMATOCRIT 29.3 % (37.0-53.0); HEMOGLOBIN 9.4 g/dL (12.0-17.0); MCH 30.7 pg (27.0-34.0); MCHC 32.1 gm/dL (32.0-36.5); MCV 95.8 fl (83.0-98.0); MPV 9.5 fl (9.4-12.4); PLATELET COUNT 727 K/uL (150-450); RBC 3.06 M/uL (4.00-6.00); RDW-CV 18.1 % (11.9-14.6)
[2016-12-18 03:28] LABS: WBC 30.8 K/uL (4.0-11.0)
[2016-12-18 04:42] LABS: ABSOLUTE NEUTROPHIL CT (ANC) 20.6 K/uL (1.4-9.0); BANDED NEUTROPHIL # 2.2 K/uL (0.0-0.1); BANDED NEUTROPHILS % 7 %; LYMPHOCYTE # 6.5 K/uL (0.8-4.0); LYMPHOCYTE % 21 %; MONOCYTE # 1.5 K/uL (0.0-1.0); SEGMENTED NEUTROPHIL # 18.5 K/uL (1.4-9.0); SEGMENTED NEUTROPHIL % 60 %
[2016-12-18 16:59] LABS: ALBUMIN 2.5 gm/dL (3.5-5.0); ALK PHOS 157 IU/L (33-138); ALT 62 IU/L (12-78); TOTAL BILIRUBIN 0.5 mg/dL (0.0-1.5); TOTAL PROTEIN 6.2 g/dL (6.0-8.4)
[2016-12-18 17:10] LABS: AST 52 IU/L (10-40)
[2016-12-19 02:36] LABS: HEMATOCRIT 27.9 % (37.0-53.0); HEMOGLOBIN 8.8 g/dL (12.0-17.0); MCH 30.1 pg (27.0-34.0); MCHC 31.5 gm/dL (32.0-36.5); MCV 95.5 fl (83.0-98.0); MPV 9.3 fl (9.4-12.4); PLATELET COUNT 619 K/uL (150-450); RBC 2.92 M/uL (4.00-6.00); RDW-CV 18.5 % (11.9-14.6)
[2016-12-19 02:47] LABS: WBC 25.8 K/uL (4.0-11.0)
[2016-12-19 02:49] LABS: ALBUMIN 2.5 gm/dL (3.5-5.0); ANION GAP 14.6 (10.0-19.0); BLOOD UREA NITROGEN 16 mg/dL (6-24); CHLORIDE 111 mMol/L (96-110); CO2 22 mMol/L (22-32); CREATININE 0.7 mg/dL (0.6-1.3); ESTIMATED GFR (MDRD EQUATION) > 60; PHOSPHORUS 3.4 mg/dL (2.5-4.9); POTASSIUM 3.6 mMol/L (3.7-5.1); SODIUM 144 mMol/L (135-145)
[2016-12-19 05:03] LABS: ABSOLUTE NEUTROPHIL CT (ANC) 19.9 K/uL (1.4-9.0); BANDED NEUTROPHIL # 2.3 K/uL (0.0-0.1); BANDED NEUTROPHILS % 9 %; LYMPHOCYTE # 3.1 K/uL (0.8-4.0); LYMPHOCYTE % 12 %; MONOCYTE # 1.5 K/uL (0.0-1.0); SEGMENTED NEUTROPHIL # 17.5 K/uL (1.4-9.0); SEGMENTED NEUTROPHIL % 68 %
[2016-12-19 14:02] LABS: HEMATOCRIT 29.4 % (37.0-53.0); HEMOGLOBIN 9.5 g/dL (12.0-17.0); MCH 30.6 pg (27.0-34.0); MCHC 32.3 gm/dL (32.0-36.5); MCV 94.8 fl (83.0-98.0); MPV 9.1 fl (9.4-12.4); PLATELET COUNT 585 K/uL (150-450); RDW-CV 18.4 % (11.9-14.6); WBC 25.7 K/uL (4.0-11.0)
[2016-12-19 14:53] LABS: ABSOLUTE NEUTROPHIL CT (ANC) 21.9 K/uL (1.4-9.0); BANDED NEUTROPHILS % 4 %; LYMPHOCYTE # 2.3 K/uL (0.8-4.0); LYMPHOCYTE % 9 %; SEGMENTED NEUTROPHIL # 20.8 K/uL (1.4-9.0)
[2016-12-19 15:06] LABS: SEGMENTED NEUTROPHIL % 81 %
[2016-12-20 06:03] LABS: BASOPHIL # 0.1 K/uL (0.0-0.2); BASOPHIL % 0.3 %; EOSINOPHIL # 0.6 K/uL (0.0-0.5); EOSINOPHIL % 2.7 %; HEMATOCRIT 28.2 % (37.0-53.0); IMMATURE GRANULOCYTE # 0.9 K/uL (0.0-0.3); IMMATURE GRANULOCYTE % 4.4 %; LYMPHOCYTE % 14.8 %; MCH 30.9 pg (27.0-34.0); MCHC 31.9 gm/dL (32.0-36.5); MCV 96.9 fl (83.0-98.0); MONOCYTE # 1.3 K/uL (0.0-1.0); MONOCYTE % 6.5 %; MPV 9.3 fl (9.4-12.4); NEUTROPHIL # (ANC) 14.7 K/uL (1.4-9.0); NEUTROPHIL % 71.3 %; NRBC % 0.3 /100WBC (0-0.00); PLATELET COUNT 552 K/uL (150-450); RBC 2.91 M/uL (4.00-6.00); RDW-CV 18.5 % (11.9-14.6)
[2016-12-20 06:04] LABS: WBC 20.6 K/uL (4.0-11.0)
[2016-12-20 06:21] LABS: ALBUMIN 2.5 gm/dL (3.5-5.0); ALT 50 IU/L (12-78); ANION GAP 12.7 (10.0-19.0); AST 32 IU/L (10-40); BLOOD UREA NITROGEN 13 mg/dL (6-24); CALCIUM 8.3 mg/dL (8.5-10.5); CHLORIDE 109 mMol/L (96-110); CO2 23 mMol/L (22-32); CREATININE 0.7 mg/dL (0.6-1.3); ESTIMATED GFR (MDRD EQUATION) > 60; POTASSIUM 3.7 mMol/L (3.7-5.1); SODIUM 141 mMol/L (135-145)
[2016-12-20 06:24] LABS: ALK PHOS 161 IU/L (33-138); TOTAL BILIRUBIN 0.4 mg/dL (0.0-1.5); TOTAL PROTEIN 5.8 g/dL (6.0-8.4)
[2016-12-21 06:23] LABS: BASOPHIL % 0.2 %; EOSINOPHIL # 0.4 K/uL (0.0-0.5); EOSINOPHIL % 2.4 %; HEMATOCRIT 28.1 % (37.0-53.0); HEMOGLOBIN 8.8 g/dL (12.0-17.0); IMMATURE GRANULOCYTE # 0.7 K/uL (0.0-0.3); IMMATURE GRANULOCYTE % 3.9 %; LYMPHOCYTE # 2.6 K/uL (0.8-4.0); LYMPHOCYTE % 14.9 %; MCH 30.2 pg (27.0-34.0); MCHC 31.3 gm/dL (32.0-36.5); MCV 96.6 fl (83.0-98.0); MONOCYTE # 1.2 K/uL (0.0-1.0); MONOCYTE % 7.1 %; NEUTROPHIL # (ANC) 12.4 K/uL (1.4-9.0); NEUTROPHIL % 71.5 %; NRBC % 0.2 /100WBC (0-0.00); PLATELET COUNT 466 K/uL (150-450); RBC 2.91 M/uL (4.00-6.00); RDW-CV 18.4 % (11.9-14.6)
[2016-12-21 06:24] LABS: WBC 17.3 K/uL (4.0-11.0)
[2016-12-22 09:48] LABS: BASOPHIL # 0.1 K/uL (0.0-0.2); BASOPHIL % 0.3 %; EOSINOPHIL # 0.4 K/uL (0.0-0.5); EOSINOPHIL % 1.9 %; HEMATOCRIT 29.6 % (37.0-53.0); HEMOGLOBIN 9.5 g/dL (12.0-17.0); IMMATURE GRANULOCYTE # 0.4 K/uL (0.0-0.3); IMMATURE GRANULOCYTE % 2.1 %; LYMPHOCYTE # 1.7 K/uL (0.8-4.0); LYMPHOCYTE % 8.4 %; MCH 30.4 pg (27.0-34.0); MCHC 32.1 gm/dL (32.0-36.5); MCV 94.6 fl (83.0-98.0); MONOCYTE % 4.9 %; MPV 9.2 fl (9.4-12.4); NEUTROPHIL # (ANC) 16.7 K/uL (1.4-9.0); NEUTROPHIL % 82.4 %; NRBC % 0.1 /100WBC (0-0.00); RBC 3.13 M/uL (4.00-6.00)
[2016-12-22 09:53] LABS: PLATELET COUNT 564 K/uL (150-450); WBC 20.2 K/uL (4.0-11.0)
[2016-12-23 06:02] LABS: BASOPHIL # 0.1 K/uL (0.0-0.2); BASOPHIL % 0.4 %; EOSINOPHIL # 0.5 K/uL (0.0-0.5); EOSINOPHIL % 3.1 %; HEMATOCRIT 31.2 % (37.0-53.0); HEMOGLOBIN 9.8 g/dL (12.0-17.0); IMMATURE GRANULOCYTE # 0.3 K/uL (0.0-0.3); IMMATURE GRANULOCYTE % 1.9 %; LYMPHOCYTE % 12.1 %; MCH 30.2 pg (27.0-34.0); MCHC 31.4 gm/dL (32.0-36.5); MONOCYTE # 1.1 K/uL (0.0-1.0); MONOCYTE % 6.6 %; NEUTROPHIL # (ANC) 12.7 K/uL (1.4-9.0); NEUTROPHIL % 75.9 %; NRBC % 0 /100WBC (0-0.00); PLATELET COUNT 469 K/uL (150-450); RBC 3.25 M/uL (4.00-6.00); RDW-CV 17.9 % (11.9-14.6)
[2016-12-23 06:03] LABS: WBC 16.7 K/uL (4.0-11.0)
[2016-12-23 06:16] LABS: ALBUMIN 2.6 gm/dL (3.5-5.0); ANION GAP 14.9 (10.0-19.0); BLOOD UREA NITROGEN 11 mg/dL (6-24); CALCIUM 8.4 mg/dL (8.5-10.5); CHLORIDE 110 mMol/L (96-110); CO2 23 mMol/L (22-32); CREATININE 0.7 mg/dL (0.6-1.3); ESTIMATED GFR (MDRD EQUATION) > 60; PHOSPHORUS 4.1 mg/dL (2.5-4.9); POTASSIUM 3.9 mMol/L (3.7-5.1); SODIUM 144 mMol/L (135-145)
[2016-12-24 04:51] LABS: BASOPHIL # 0.1 K/uL (0.0-0.2); BASOPHIL % 0.4 %; EOSINOPHIL # 0.5 K/uL (0.0-0.5); EOSINOPHIL % 3.6 %; HEMATOCRIT 32.1 % (37.0-53.0); IMMATURE GRANULOCYTE # 0.2 K/uL (0.0-0.3); IMMATURE GRANULOCYTE % 1.2 %; LYMPHOCYTE # 1.7 K/uL (0.8-4.0); LYMPHOCYTE % 12.2 %; MCH 29.7 pg (27.0-34.0); MCHC 31.2 gm/dL (32.0-36.5); MCV 95.3 fl (83.0-98.0); MONOCYTE % 7.1 %; NEUTROPHIL # (ANC) 10.4 K/uL (1.4-9.0); NEUTROPHIL % 75.5 %; NRBC % 0.1 /100WBC (0-0.00); PLATELET COUNT 440 K/uL (150-450); RBC 3.37 M/uL (4.00-6.00); RDW-CV 17.7 % (11.9-14.6); WBC 13.7 K/uL (4.0-11.0)
[2016-12-24 05:15] LABS: ANION GAP 12.1 (10.0-19.0); BLOOD UREA NITROGEN 14 mg/dL (6-24); CALCIUM 8.3 mg/dL (8.5-10.5); CHLORIDE 108 mMol/L (96-110); CO2 25 mMol/L (22-32); CREATININE 0.6 mg/dL (0.6-1.3); ESTIMATED GFR (MDRD EQUATION) > 60; POTASSIUM 4.1 mMol/L (3.7-5.1); SODIUM 141 mMol/L (135-145)
[2016-12-25 05:53] LABS: BASOPHIL # 0.1 K/uL (0.0-0.2); BASOPHIL % 0.5 %; EOSINOPHIL # 0.4 K/uL (0.0-0.5); HEMATOCRIT 33.8 % (37.0-53.0); HEMOGLOBIN 10.3 g/dL (12.0-17.0); IMMATURE GRANULOCYTE # 0.1 K/uL (0.0-0.3); IMMATURE GRANULOCYTE % 0.8 %; LYMPHOCYTE # 2.1 K/uL (0.8-4.0); LYMPHOCYTE % 19.2 %; MCH 29.6 pg (27.0-34.0); MCHC 30.5 gm/dL (32.0-36.5); MCV 97.1 fl (83.0-98.0); MONOCYTE # 0.9 K/uL (0.0-1.0); MONOCYTE % 8.3 %; MPV 9.1 fl (9.4-12.4); NEUTROPHIL # (ANC) 7.4 K/uL (1.4-9.0); NEUTROPHIL % 67.2 %; NRBC % 0.2 /100WBC (0-0.00); PLATELET COUNT 484 K/uL (150-450); RBC 3.48 M/uL (4.00-6.00); RDW-CV 17.6 % (11.9-14.6); WBC 11.1 K/uL (4.0-11.0)
[2016-12-25 06:04] LABS: ANION GAP 10.3 (10.0-19.0); BLOOD UREA NITROGEN 13 mg/dL (6-24); CALCIUM 8.6 mg/dL (8.5-10.5); CHLORIDE 108 mMol/L (96-110); CO2 28 mMol/L (22-32); CREATININE 0.7 mg/dL (0.6-1.3); ESTIMATED GFR (MDRD EQUATION) > 60; POTASSIUM 4.3 mMol/L (3.7-5.1); SODIUM 142 mMol/L (135-145)
== END 2016-12-25 16:32 | DRG 469 ==
LOC: GACC 13:59 → G3N 15:10 → GMSU 15:10 → G3N 12-09 14:50 → GMSU 12-14 16:54
PROVIDERS: Emergency Medicine; Family Medicine; Internal Medicine; Nurse Practitioner Family; Physician Assistant; ADMIT Orthopaedic Surgery
DX: S72.002A Fracture of unspecified part of neck of left femur, initial encounter for closed fracture (principal); I50.33 Acute on chronic diastolic (congestive) heart failure; I26.99 Other pulmonary embolism without acute cor pulmonale; J96.01 Acute respiratory failure with hypoxia; D59.9 Acquired hemolytic anemia, unspecified; R16.1 Splenomegaly, not elsewhere classified; E66.9 Obesity, unspecified; D62 Acute posthemorrhagic anemia; G80.2 Spastic hemiplegic cerebral palsy; Z68.35 Body mass index [BMI] 35.0-35.9, adult; S72.112A Displaced fracture of greater trochanter of left femur, initial encounter for closed fracture; W18.09XA Striking against other object with subsequent fall, initial encounter; I11.0 Hypertensive heart disease with heart failure; J32.4 Chronic pansinusitis; D72.829 Elevated white blood cell count, unspecified; R00.0 Tachycardia, unspecified; K59.00 Constipation, unspecified; M62.452 Contracture of muscle, left thigh; M67.854 Other specified disorders of tendon, left hip; L98.8 Other specified disorders of the skin and subcutaneous tissue; M62.838 Other muscle spasm; R31.9 Hematuria, unspecified; Z79.01 Long term (current) use of anticoagulants
CPT/HCPCS: A9270; A9503; C1713; C1776; J0690; J1100; J1170; J1644; J1650; J1885; J1940; J1956; J2001; J2270; J2405; J2550; J3010; J3360; J7030; J7050; Q9967

== ENCOUNTER → 2016-12-05 | Outpatient (CLI) | payer MEDICAID ==
[~2016-12-05] MED LIST: TYLENOL EXTRA500 MG PO
== END | disposition disaster alternative care site (69) ==
LOC: GAMB 13:33
DX: S79.912A Unspecified injury of left hip, initial encounter (principal); M25.552 Pain in left hip; G80.9 Cerebral palsy, unspecified; X58.XXXA Exposure to other specified factors, initial encounter
CPT/HCPCS: A0425; A0427; J3010

== ENCOUNTER → 2016-12-26 | Outpatient (CLI) | payer MEDICAID | END | disposition disaster alternative care site (69) | LOC: GAMB 16:15 | DX: S79.912A Unspecified injury of left hip, initial encounter (principal); Z98.890 Other specified postprocedural states; G80.9 Cerebral palsy, unspecified; W19.XXXA Unspecified fall, initial encounter | CPT/HCPCS: A0425; A0428 ==

== ENCOUNTER → 2017-01-06 | Outpatient (CLI) | payer MEDICAID | END | disposition disaster alternative care site (69) | LOC: GRAD 11:30 | DX: Z47.1 Aftercare following joint replacement surgery (principal); Z96.641 Presence of right artificial hip joint ==

== ENCOUNTER → 2017-03-18 | Outpatient (CLI) | payer MEDICAID ==
--- NOTE | ~2017-03-18 | ENPV ---
Vascular Lower Extremities DVT Study Procedure Demographics Patient Name PAULINE STRANGE Date of Study 03/18/2017 Patient Number [id number] Gender Male Date of 1965 Age 51 Visit Number [id number] Height Accession Number [id number] Weight Room Number BSA BMI Referring [facility] Interpreting Silas Muñoz MD Physician Physician Physician Ordering [facility] Business Asst Physician Quill Fixer Dorian Higuera, T Conclusions Summary No evidence of deep vein thrombosis in bilateral lower extremities. Bilateral peroneal veins were not visualized secondary to edema and a sub-optimal image. Cannot rule out deep vein thrombosis in these calf veins. Procedure Type of Study: Veins:Lower Extremities DVT Study, Venous Duplex Lower Extremity Bilateral. Indications for Study:Bilateral lower extremity edema. Appropriate Use Criteria:9 Patient Status:Routine. Study Location:Vascular Lab. Technical Quality:Limited visualization due to edema. Velocities are measured in cm/s ; Diameters are measured in cm Right Lower Extremities DVT Study Measurements Right 2D and Doppler Measurements + + + + +------+------+ + !Location !Visualized!Compressibility!Thrombosis!Signal!Reflux!Reflux ! ! ! ! ! ! ! !(sec) ! + + + + +------+------+ + !GSV Thigh !Yes !Yes !None !Phasic!No ! ! + + + + +------+------+ + !Common !Yes !Yes !None !Phasic!No ! ! !Femoral ! ! ! ! ! ! ! + + + + +------+------+ + !Prox !Yes !Yes !None !Phasic!No ! ! !Femoral ! ! ! ! ! ! ! + + + + +------+------+ + !Mid Femoral!Yes !Yes !None !Phasic!No ! ! + + + + +------+------+ + !Dist !Yes !Yes !None !Phasic!No ! ! !Femoral ! ! ! ! ! ! ! + + + + +------+------+ + !Popliteal !Yes !Yes !None !Phasic!No ! ! + + + + +------+------+ + !Gastroc !Yes !Yes !None ! ! ! ! + + + + +------+------+ + !PTV !Yes !Yes !None ! ! ! ! + + + + +------+------+ + !Peroneal !No ! ! ! ! ! ! + + + + +------+------+ + Left Lower Extremities DVT Study Measurements Left 2D and Doppler Measurements + + + + +------+------+ + !Location !Visualized!Compressibility!Thrombosis!Signal!Reflux!Reflux ! ! ! ! ! ! ! !(sec) ! + + + + +------+------+ + !GSV Thigh !Yes !Yes !None !Phasic!No ! ! + + + + +------+------+ + !Common !Yes !Yes !None !Phasic!No ! ! !Femoral ! ! ! ! ! ! ! + + + + +------+------+ + !Prox !Yes !Yes !None !Phasic!No ! ! !Femoral ! ! ! ! ! ! ! + + + + +------+------+ + !Mid Femoral!Yes !Yes !None !Phasic!No ! ! + + + + +------+------+ + !Dist !Yes !Yes !None !Phasic!No ! ! !Femoral ! ! ! ! ! ! ! + + + + +------+------+ + !Popliteal !Yes !Yes !None !Phasic!No ! ! + + + + +------+------+ + !Gastroc !Yes !Yes !None ! ! ! ! + + + + +------+------+ + !PTV !Yes !Yes !None ! ! ! ! + + + + +------+------+ + !Peroneal !No ! ! ! ! ! ! + + + + +------+------+ + Signature dtt: ARMANDO RICO dtd: 03/18/17 1056 Physician Self Roxanne
== END | disposition disaster alternative care site (69) ==
LOC: GCAR 10:00
DX: M21.969 Unspecified acquired deformity of unspecified lower leg (principal); M79.89 Other specified soft tissue disorders

== ENCOUNTER → 2017-04-02 | Outpatient (CLI) | payer MEDICAID | LOC: LGSMG 13:05 | DX: M79.89 Other specified soft tissue disorders (principal) ==

== ENCOUNTER → 2017-04-14 | Outpatient (CLI) | payer MEDICAID | END | disposition disaster alternative care site (69) | LOC: GRAD 11:42 | DX: Z47.89 Encounter for other orthopedic aftercare (principal); Z96.641 Presence of right artificial hip joint ==